=== PATIENT | male | born 1990 | race Two or more races ===

== ENCOUNTER 2024-04-10 11:46 | Emergency (ER) | payer OTHER ==
[~2024-04-10] VITALS: Ht 172.7 cm; Wt 125.0 kg
[2024-04-10 13:56] VITALS: BP 146/97; PULSE 110; RESP 14; TEMP 98.2; O2SAT 95
[2024-04-10] MEDS ORDERED: IBUP-1456 PO (14:39)
[2024-04-10] MEDS ORDERED: METH-1182 PO (14:39)
[2024-04-10] MEDS: ACETAMINOPHEN 500 MG TAB PO ONE (14:51)
== END 2024-04-10 14:57 | disposition home or self-care (01) ==
LOC: EDBD 11:46 → ER 11:46
DX: S46.812A Strain of other muscles, fascia and tendons at shoulder and upper arm level, left arm, initial encounter (principal); S80.12XA Contusion of left lower leg, initial encounter; Z79.899 Other long term (current) drug therapy; V49.9XXA Car occupant (driver) (passenger) injured in unspecified traffic accident, initial encounter; Y93.I9 Activity, other involving external motion; Y92.411 Interstate highway as the place of occurrence of the external cause; Y99.8 Other external cause status
CPT/HCPCS: 73030; 73590